=== PATIENT | male | born 1950 | race Caucasian/White ===

== ENCOUNTER 2021-01-24 12:17 | Emergency (ER) | payer OTHER ==
[2021-01-24] MEDS ORDERED: FENTANYL CITR 100 MCG/2 ML ONE ×2 (13:51→15:37)
[2021-01-24] MEDS ORDERED: ONDANSETRON 4 MG/2 ML VIAL ONE (13:51)
[2021-01-24 14:02] LABS: Basophils % 0.6 % (0-1.3); Hematocrit 42.7 % (39.6-49.0); Lymphocytes % 21.4 % (15.3-44.8); MPV 6.9 fL (7.6-11.3)
[2021-01-24 14:13] LABS: C-Reactive Protein 45.7 mg/L (<3.00)
--- NOTE | 2021-01-24 15:23 | ER ---
Nurse's Notes [facility] Name: Mahad Ag Age: 70 yrs Sex: Male : 1950 Arrival Date: 01/24/2021 Time: 12:20 Bed 25 Private MD: Diagnosis: Pain in joint-bilateral shoulders, bialteral hips, bialteral knees Presentation: 01/24 12:30 Chief complaint: Patient states: Weakness, pain to joints for 2 weeks. Has seen another [facility] and Dr. Shepard, nothing specific found. In so much pain today he can barely move. Coronavirus screen: Client denies travel out of the [place] in the last 14 days. At this time, the client does not indicate any symptoms associated with coronavirus-19. Ebola Screen: Patient denies travel to an Ebola-affected area in the 21 days before illness onset. Initial Sepsis Screen: Does the patient meet any 2 criteria? No. Patient's initial sepsis screen is negative. Does the patient have a suspected source of infection? No. Patient's initial sepsis screen is negative. Risk Assessment: Do you want to hurt yourself or someone else? Patient reports no desire to harm self or others. Onset of symptoms was January 10, 2021. 12:30 Method Of Arrival: Ambulatory [facility] 12:30 Acuity: ROMAN 3 ll Historical: - Allergies: 12:33 Ativan; ll1 12:33 Cipro; ll1 12:33 Flagyl; ll1 12:33 Soma; ll1 12:33 Stadol; ll1 12:33 Morphine; ll1 - PMHx: 12:33 Diverticulitis; 1 - PSHx: 12:33 Cholecystectomy; Appendectomy; Hernia repair; ll1 - Immunization history:: Flu vaccine is not up to date. - Social history:: Smoking status: Patient denies any tobacco usage or history of. Screenin:27 Abuse screen: Denies threats or abuse. Denies injuries from another. Nutritional zb screening: No deficits noted. Tuberculosis screening: No symptoms or risk factors identified. 16:44 Fall Risk None identified. zb Assessment: 13:50 General: Appears uncomfortable, Behavior is calm, cooperative. Pain: Complains of pain zb in joints Pain does not radiate. Pain currently is 10 out of 10 on a pain scale. Quality of pain is described as aching. Neuro: Level of Consciousness is awake, alert, obeys commands, Oriented to person, place, time, situation, Moves all extremities. Speech is normal. Cardiovascular: Denies chest pain, Heart tones S1 S2 present Patient's skin is warm and dry. Respiratory: Airway is patent Respiratory effort is even, unlabored, shallow, Respiratory pattern is regular. GI: No deficits noted. : No deficits noted. Derm: Skin is intact, Skin is dry, Skin is normal. Musculoskeletal: Circulation, motion, and sensation intact. Range of motion: intact in all extremities. 14:29 Reassessment: Patient appears in no apparent distress at this time. Patient and/or zb family updated on plan of care and expected duration. Pain level reassessed. Patient is alert, oriented x 3, equal unlabored respirations, skin warm/dry/pink. at bedside patient appears to feel a lot better. rates pain 6/10. 15:30 Reassessment: Patient appears in no apparent distress at this time. Patient and/or zb family updated on plan of care and expected duration. Pain level reassessed. Patient is alert, oriented x 3, equal unlabored respirations, skin warm/dry/pink. patient appears to be sleeping at this time. pain decreased. remains at bedside. 16:40 Reassessment: Patient appears in no apparent distress at this time. Patient and/or zb family updated on plan of care and expected duration. Pain level reassessed. Patient is alert, oriented x 3, equal unlabored respirations, skin warm/dry/pink. d/c instructions given. patient ambulated out with . gait even and stable. Vital Signs: 12:30 BP 102 / 67; Pulse 73; Resp 17; Temp 98.0; Pulse Ox 93% ; Weight 86.18 kg; Height 5 ft. ll1 7 in. (170.18 cm); Pain 10/10; 13:57 BP 136 / 90; Pulse 56; Resp 18; Pulse Ox 92% 2 lpm ; zb 14:29 BP 136 / 77; Pulse 59; Resp 18; Pulse Ox 94% 2 lpm ; zb 15:48 BP 135 / 82; Pulse 68; Resp 16; Pulse Ox 100% ; zb 16:20 BP 144 / 67; Pulse 16; Resp 18; Pulse Ox 99% on R/A; zb 12:30 Body Mass Index 29.76 (86.18 kg, 170.18 cm) ll1 ED Course: 12:20 Patient arrived in ED. bp1 12:33 Triage completed. ll1 12:34 Arm band placed on Patient placed in an exam room, on a stretcher. ll1 12:35 Melida Noyola RN is Primary Nurse. zb 13:02 Franco Pisano NP is PHCP. pm1 13:02 Cody Ventura MD is Attending Physician. pm1 13:51 Inserted saline lock: 20 gauge in left antecubital area, using aseptic technique. Blood zb collected. 16:44 Patient has correct armband on for positive identification. Adult w/ patient. Pulse ox zb on. NIBP on. 16:44 No provider procedures requiring assistance completed. IV discontinued, intact, zb bleeding controlled, No redness/swelling at site. Pressure dressing applied. Administered Medications: 13:49 Drug: fentaNYL (PF) 50 mcg {Note: RASS +1.} Route: IVP; Site: left antecubital; zb 14:29 Follow up: Response: No adverse reaction; Pain is decreased; RASS: Alert and Calm (0) zb 13:49 Drug: Zofran (Ondansetron) 4 mg Route: IVP; Site: left antecubital; zb 14:29 Follow up: Response: No adverse reaction; Nausea is decreased zb 15:19 Drug: fentaNYL (PF) 50 mcg {Note: RASS 0.} Route: IVP; Site: left antecubital; zb 16:00 Follow up: Response: No adverse reaction; Pain is decreased; RASS: Alert and Calm (0) zb 15:20 Drug: Decadron - Dexamethasone 10 mg Route: IVP; Site: left antecubital; zb 16:00 Follow up: Response: No adverse reaction; Pain is decreased zb Outcome: 15:22 Discharge ordered by . pm1 16:44 Discharged to home ambulatory, with family. zb 16:44 Condition: stable 16:44 Discharge instructions given to patient, family, Instructed on discharge instructions, follow up and referral plans. medication usage, Demonstrated understanding of instructions, follow-up care, medications, Prescriptions given X 2. 16:45 Patient left the ED. zb Signatures: Franco Pisano, COOK APPRENTICE COOK APPRENTICE pm1 Brandon Tidwell, RN RN ll1 Anh King [place], DELMY RN zb
--- NOTE | 2021-01-24 15:24 | EDPHYS ---
Physician Documentation [facility] Name: Mahad Ag Age: 70 yrs Sex: Male : 1950 Arrival Date: 01/24/2021 Time: 12:20 Bed 25 Private MD: ED Physician Cody Ventura HPI: 01/24 13:39 This 70 yrs old Male presents to ER via Ambulatory with complaints of General pm1 Weakness, Pain All Over. 13:39 Patient with complaints of joint pain to bilateral shoulders, hips, and knees for the pm1 past 3 weeks. Onset: The symptoms/episode began/occurred 3 week(s) ago. Severity of symptoms: in the emergency department the symptoms are worse. The patient has not experienced similar symptoms in the past. The patient has been recently seen by a physician: with similar presenting complaints, lab tests were done, and was referred to a specialist, rheumatology but has not been able to get an appointment. Patient was seen for the same complaint within the past 3 weeks for the same complaint with multiple providers: ER physician - Had labs and pain medications, discharged with referral to rheumatology; PCP - Dr. Shepard, labs drawn; Orthopedics - steroid injection to knee that improved his pain. Cancelled follow up because he felt better. Patient is not taking any pain medications at home for his pain. Historical: - Allergies: 12:33 Ativan; ll1 12:33 Cipro; ll1 12:33 Flagyl; ll1 12:33 Soma; ll1 12:33 Stadol; ll1 12:33 Morphine; ll1 - PMHx: 12:33 Diverticulitis; ll1 - PSHx: 12:33 Cholecystectomy; Appendectomy; Hernia repair; ll1 - Immunization history:: Flu vaccine is not up to date. - Social history:: Smoking status: Patient denies any tobacco usage or history of. ROS: 13:39 Constitutional: Negative for fever, chills, and weight loss, Eyes: Negative for injury, pm1 pain, redness, and discharge, ENT: Negative for injury, pain, and discharge, Neck: Negative for injury, pain, and swelling, Cardiovascular: Negative for chest pain, palpitations, and edema, Respiratory: Negative for shortness of breath, cough, wheezing, and pleuritic chest pain, Abdomen/GI: Negative for abdominal pain, nausea, vomiting, diarrhea, and constipation. 13:39 : Negative for injury, bleeding, discharge, and swelling, Skin: Negative for injury, rash, and discoloration. 13:39 Back: Positive for of the lumbar area. Has chronic low back pain to L4. 13:39 MS/extremity: Positive for pain, of the bilateral shoulders, bilateral hips, bilateral knees, Negative for 13:39 Neuro: Positive for generalized weakness, Negative for numbness, tingling. Exam: 13:39 Constitutional: This is a well developed, well nourished patient who is awake, alert, pm1 and in no acute distress. Head/Face: Normocephalic, atraumatic. 13:39 Skin: Warm, dry with normal turgor. Normal color with no rashes, no lesions, and no evidence of cellulitis. 13:39 Eyes: Exam is negative for acute changes, Extraocular movements: no acute changes, Conjunctiva: normal, Sclera: no appreciated abnormality, icterus, is not appreciated. 13:39 ENT: Exam is negative for Mouth: Lips: normal, Oral mucosa: normal, pink and intact, moist. 13:39 Cardiovascular: Exam negative for acute changes, Rate: normal, Rhythm: regular, Pulses: no pulse deficits are appreciated, Edema: is not appreciated. 13:39 Respiratory: Exam negative for acute changes, respiratory distress, shortness of breath. 13:39 Abdomen/GI: Inspection: obese Palpation: abdomen is soft and non-tender, in all quadrants. 13:39 Back: normal spinal alignment noted, vertebral tenderness, is not appreciated, muscle spasm, is not present. 13:39 Musculoskeletal/extremity: Painful passive full range of motion to right and left shoulders. No pain with range of motion to bilateral hips and knees. 13:39 Neuro: Exam negative for acute changes, Orientation: is normal, Mentation: is normal, Motor: is normal, moves all fours, Sensation: is normal, no obvious gross deficits. Vital Signs: 12:30 BP 102 / 67; Pulse 73; Resp 17; Temp 98.0; Pulse Ox 93% ; Weight 86.18 kg; Height 5 ft. ll1 7 in. (170.18 cm); Pain 10/10; 13:57 BP 136 / 90; Pulse 56; Resp 18; Pulse Ox 92% 2 lpm ; zb 14:29 BP 136 / 77; Pulse 59; Resp 18; Pulse Ox 94% 2 lpm ; zb 15:48 BP 135 / 82; Pulse 68; Resp 16; Pulse Ox 100% ; zb 16:20 BP 144 / 67; Pulse 16; Resp 18; Pulse Ox 99% on R/A; zb 12:30 Body Mass Index 29.76 (86.18 kg, 170.18 cm) ll1 MDM: 13:02 Patient medically screened. pm1 14:39 Data reviewed: vital signs. ED course: Patient reports significant pain relief with pm1 fentanyl. 15:19 ED course: Patient reports pain went down from 10 to 4/10. Currently his pain is now a pm1 6/10. Will give additional pain medications and steroids. Will discharge home with Tylenol 3 and steroids. Discussed need for follow up with rheumatology. 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 16:32 ED course: [place] reviewed. Last narcotic prescription in 2019. pm1 01/24 13:27 Order name: CBC with Diff; Complete Time: 14:41 pm1 30 13:27 Order name: BMP; Complete Time: 14:41 pm1 01/24 13:27 Order name: Sed Rate; Complete Time: 14:41 pm1 01/24 13:27 Order name: CRP; Complete Time: 14:41 pm1 01/24 13:27 Order name: IV Saline Lock; Complete Time: 13:49 pm1 Administered Medications: 13:49 Drug: fentaNYL (PF) 50 mcg {Note: RASS +1.} Route: IVP; Site: left antecubital; zb 14:29 Follow up: Response: No adverse reaction; Pain is decreased; RASS: Alert and Calm (0) zb 13:49 Drug: Zofran (Ondansetron) 4 mg Route: IVP; Site: left antecubital; zb 14:29 Follow up: Response: No adverse reaction; Nausea is decreased zb 15:19 Drug: fentaNYL (PF) 50 mcg {Note: RASS 0.} Route: IVP; Site: left antecubital; zb 16:00 Follow up: Response: No adverse reaction; Pain is decreased; RASS: Alert and Calm (0) zb 15:20 Drug: Decadron - Dexamethasone 10 mg Route: IVP; Site: left antecubital; zb 16:00 Follow up: Response: No adverse reaction; Pain is decreased zb Disposition: 01/25 07:28 Co-signature as Attending Physician, Cody Ventura MD I agree with the assessment and rj plan of care. Disposition: 01/24/21 15:22 Discharged to Home. Impression: Pain in joint - bilateral shoulders, bialteral hips, bialteral knees. - Condition is Stable. - Discharge Instructions: Joint Pain. - Prescriptions for Tylenol- Codeine #3 300-30 mg Oral Tablet - take 2 tablets by ORAL route every 6 hours As needed; 20 tablet. Medrol (Joe) 4 mg Oral Tablets, Dose Pack - take 1 tablet by ORAL route as directed - follow package instructions; 1 packet. - Medication Reconciliation Form, Thank You Letter, Antibiotic Education, Prescription Opioid Use form. - Follow up: Emergency Department; When: As needed; Reason: Worsening of condition. Follow up: Private Physician; When: 2 - 3 days; Reason: Recheck today's complaints, Continuance of care, Re-evaluation by your physician. - Problem is new. - Symptoms have improved. Signatures: Dispatcher [employer] EDCody Bhatia MD MD cha Marinas, Patrick, CELLOPHANE BATH MIXER CELLOPHANE BATH MIXER pm1 Brandon Tidwell RN RN ll1 Melida Noyola RN RN zb Corrections: (The following items were deleted from the chart) 01/24 14:36 13:39 The patient has been recently seen by a physician: with similar presenting pm1 complaints, lab tests were done, and was referred to a specialist, rheumatology but has not been able to get an appointment. Patient was seen for the same complaint within the past 3 weeks for the same complaint with multiple providers: ER physician - Had labs and pain medications, discharged with referral to rheumatology; PCP - Dr. Shepard, labs drawn; Orthopedics. Patient is not taking any pain medications at home for his pain, pm1 16:45 15:22 01/24/2021 15:22 Discharged to Home. Impression: Pain in joint - bilateral zb shoulders, bialteral hips, bialteral knees. Condition is Stable. Forms are Medication Reconciliation Form, Thank You Letter, Antibiotic Education, Prescription Opioid Use. Follow up: Emergency Department; When: As needed; Reason: Worsening of condition. Follow up: Private Physician; When: 2 - 3 days; Reason: Recheck today's complaints, Continuance of care, Re-evaluation by your physician. Problem is new. Symptoms have improved. pm1
[2021-01-24] MEDS ORDERED: dexAMETHasone 10 MG/ML VIAL ONE (15:37)
[2021-01-24 16:58] VITALS: TEMP 98
[2021-01-24 17:01] VITALS: BP 136/77; O2SAT 94
== END 2021-01-24 16:45 | disposition home or self-care (01) ==
LOC: ER 12:17
DX: M25.512 Pain in left shoulder (principal); M25.511 Pain in right shoulder; M25.552 Pain in left hip; M25.551 Pain in right hip; M25.562 Pain in left knee; M25.561 Pain in right knee; Z88.1 Allergy status to other antibiotic agents; Z88.5 Allergy status to narcotic agent; Z88.8 Allergy status to other drugs, medicaments and biological substances
CPT/HCPCS: 85025; 80048; 36415; 85652; 86140; 96375; 96374; 99284; J3010 ×2; J1100; J2405

== ENCOUNTER 2021-04-19 08:28 | Day surgery (SDC) | payer OTHER ==
--- NOTE | 2021-04-16 11:38 | RAD REPORT ---
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 FINDINGS: The lungs are clear of mass, failure or infiltrate finding. Interstitial pattern matches c omparison. Heart size is normal and central vasculature is within normal limits. No pleural effusi on or pneumothorax seen. No acute bony finding noted. No aortic abnormality. IMPRESSION: No acute cardiopulmonary process. No significant change from comparison study.
[2021-04-16 11:47] LABS: Potassium 4.4 mmol/L (3.5-5.1)
[2021-04-16 11:48] LABS: Hematocrit 46.6 % (39.6-49.0); Lymphocytes % 27.4 % (15.3-44.8); MPV 6.7 fL (7.6-11.3); RBC Red Blood Cell Count 5.24 M/uL (4.33-5.43)
[2021-04-16 11:51] LABS: Protime INR 0.98
[2021-04-19] MEDS ORDERED: LIDOCAINE 1% 20 ML MDV ONE (09:11)
[2021-04-19] MEDS ORDERED: NA CHLORIDE 0.9% 500 ML ONE (09:20)
[2021-04-19] MEDS ORDERED: HEPA 1000U/500MLS 1,000 UNIT/500 ML BAG IV ONE (09:41)
[2021-04-19] MEDS ORDERED: MIDAZOLAM HCL 2 MG/2 ML INJ ONE (09:48)
[2021-04-19] MEDS ORDERED: FENTANYL CITR 100 MCG/2 ML ONE (09:48)
[2021-04-19] MEDS ORDERED: ATROPINE SULF 1 MG/10 ML SYR IV ONE (09:49)
[2021-04-19] MEDS ORDERED: NA CHLORIDE 0.9% 0 ML ONE (09:49)
[2021-04-19 11:37] VITALS: O2SAT 97
[2021-04-19 12:09] VITALS: BP 139/52; TEMP 97.1
--- NOTE | 2021-04-19 22:36 | OP ---
Date of Procedure: 04/19/2021 Surgeon: Harinder Ferreira MD Padded Products Inspector Trimmer: Mr. Gera Silvestre. The patient will be at bedrest for 2 hours after the procedure. He will go home today and he will se e me in the office in 2 weeks. Procedure: Left heart catheterization with selective coronary arteriogram. Indication: Unstable angina. Procedure In Detail: Mr. Ag is 71, has a history of rheumatoid arthritis. He has a history of hyp ertension, was having a classic symptom with substernal chest pain radiating to the both arms with na usea, diaphoresis with exertion, thought to have unstable angina, brought to the record label intern today, prep ped and draped in routine sterile fashion, given Versed and fentanyl for sedation. A 6-Amharic sheath introduced in the right common femoral artery successfully using the Seldinger technique and 10 cc o f xylocaine. Angiography, there was normal. Angio-Seal was used to close the case. Six-Amharic cath eters, JL4 and JR4 were used to cannulate the left main and right main respectively. He had a normal left main, which gives rise to a nondominant circumflex, which was normal. LAD was normal. The JR4 showed a normal RCA that is dominant. All arteries were free of disease. There were no complicatio ns. Blood Loss: 5 cc. Postoperative Diagnoses: Unstable angina and chest pain with normal coronaries. Plan: Plan is for medical therapy. Anesthesia: Total conscious sedation was 30 minutes. ITZEL/JEMMA Voice ID: [id number] Report ID: [id number]
== END 2021-04-19 12:30 | disposition home or self-care (01) ==
LOC: CCL 08:28
DX: I20.0 Unstable angina (principal); I10 Essential (primary) hypertension; E78.5 Hyperlipidemia, unspecified; Z20.822 Contact with and (suspected) exposure to COVID-19; Z88.8 Allergy status to other drugs, medicaments and biological substances; Z88.3 Allergy status to other anti-infective agents
CPT/HCPCS: 85025; 80048; 36415; 85610; 85730; 71046; 93454; U0003; C1893; C1760; J2250; J3010; J7040; J1644; J0583

== ENCOUNTER 2021-05-20 06:22 | Day surgery (SDC) | payer OTHER ==
[2021-05-18 17:25] LABS: Absolute Lymphocytes (CBC) 2.4 K/uL (0.7-4.9); Hematocrit 44.1 % (39.6-49.0); Lymphocytes % 24.1 % (15.3-44.8); MPV 7.4 fL (7.6-11.3); RBC Red Blood Cell Count 4.93 M/uL (4.33-5.43)
[2021-05-20] MEDS ORDERED: Ringers Lactate 1,000 ML IV ONE (06:59)
[2021-05-20] MEDS ORDERED: EPINEPHRINE/PF 1 MG/ML AMP ONE (07:53)
--- NOTE | 2021-05-20 08:17 | ENDO RPT ---
[address], [address] COLONOSCOPY PROCEDURE REPORT EXAM DATE: 05/20/2021 PATIENT NAME: Mahad Ag MR #: [id number] BIRTHDATE: 1950 ATTENDING: Wilmer Mascorro M.D. STATUS: outpatient CATEGORY ANALYST: Nan Sheridan RN and Marie Jeter RN INDICATIONS: The patient is a 71 yr old Male here for a colonoscopy due to colon cancer screening PROCEDURE PERFORMED: Colonoscopy MEDICATIONS: Per Anesthesia. ESTIMATED BLOOD LOSS: None CONSENT: The patient understands the risks and benefits of the procedure and understands that these risks include, but are not limited to: sedation, allergic reaction, infection, perforation and/or bleeding. Alternative means of evaluation and treatment include, among others: physical exam, x-rays, and/or surgical intervention. The patient elects to proceed with this endoscopic procedure. DESCRIPTION OF PROCEDURE: During intra-op preparation period all mechanical medical equipment was checked for proper function. Hand hygiene and appropriate measures for infection prevention was taken. Procedure, possible complications, alternatives including, but not limited to possibility of bleeding, perforation, tear, infection, sepsis, need for surgery, need for blood transfusion, were explained to the patient. After the risks, benefits and alternatives of the procedure were thoroughly explained, Informed consent was verified, confirmed and timeout was successfully executed by the treatment team. The patient was placed in the left lateral position. A digital rectal exam was performed and revealed no abnormalities of the rectum. After appropriate level of anesthesia, the scope was passed. The EC-[id number] ([id number]) endoscope was introduced through the anus and advanced to the cecum, which was identified by the ileocecal valve. The quality of the prep was fair. The instrument was then slowly withdrawn as the colon was fully examined. Scope withdrawal time was 21 minutes. COLON FINDINGS: Severe diverticulosis was noted throughout the entire examined colon. Retroflexed views revealed no abnormalities. The scope was then completely withdrawn from the patient and the procedure terminated. ADVERSE EVENTS: There were no complications. IMPRESSIONS: Severe diverticulosis was noted throughout the entire examined colon RECOMMENDATIONS: 1. fiber rich diet 2. follow-up: office 1 week(s) 3. Metamucil 4. increase dietary water 5. no seeds in diet RECALL: Return in 0 year(s) for Colonoscopy. Wilmer Mascorro M.D. eSigned: Wilmer Mascorro M.D. 05/20/2021 8:16 AM cc: CPT CODES: ICD9 CODES: PATIENT NAME: Mahad AgKvng MR#: [id number]
[2021-05-20] MEDS ORDERED: ALBUTEROL 2.5 MG/3 ML NEB SOL ONE (08:53)
[2021-05-20] MEDS ORDERED: LIDOCAINE 1% MPF 30 ML VIAL ONE (09:08)
[2021-05-20] MEDS ORDERED: propofoL 200 MG/20 ML VIAL IV ONE (09:08)
--- NOTE | 2021-05-20 09:32 | RAD REPORT ---
EXAM DESCRIPTION: Amaury Single View05/20/2021 9:26 am CLINICAL HISTORY: Cough COMPARISON: March 2021 FINDINGS: Left lateral base is mildly hazy. The remainder of the lungs appear clear. The heart is no rmal size IMPRESSION: Left lateral base is mildly hazy probably secondary to overlying soft tissue. Infiltrat e considered less likely. If patient's symptoms persist PA and lateral chest series would be recommen ded
--- NOTE | 2021-05-20 09:34 | RAD REPORT ---
EXAM DESCRIPTION: RAD - Abdomen 1 View (KUB) - 05/20/2021 9:26 am CLINICAL HISTORY: Abdomen pain. FINDINGS: The bowel gas pattern is unremarkable. No abnormal calcification is displayed
[2021-05-20 13:40] VITALS: BP 108/62
[2021-05-20 13:42] VITALS: TEMP 97.6; O2SAT 98
== END 2021-05-20 12:05 | disposition home or self-care (01) ==
LOC: OR 06:22
PROVIDERS: ATTEND Surgery
PROC: 0DJD8ZZ Inspection of Lower Intestinal Tract, Via Natural or Artificial Opening Endoscopic (ICD-10-PCS; principal; 2021-05-20 07:30)
DX: Z12.11 Encounter for screening for malignant neoplasm of colon (principal); K57.30 Diverticulosis of large intestine without perforation or abscess without bleeding; Z20.822 Contact with and (suspected) exposure to COVID-19
CPT/HCPCS: 85025; 80048; 36415; 74018; 71045; U0003; J2704; J7120; G0121; J0171